=== PATIENT | male | born 1950 | race African-American/Black ===

== ENCOUNTER 2024-09-03 01:36 | Emergency (ER) | payer BC, MEDICARE, OTHER ==
[~2024-09-03] VITALS: Ht 193 cm; Wt 106.0 kg
[~2024-09-03 01:36] MED LIST: [UNRECOGNIZED DRUG - CODE]
[2024-09-03 01:41] VITALS: O2SAT 99
[2024-09-03 02:31] VITALS: BP 122/82; PULSE 90; RESP 16; TEMP 36.6; O2SAT 99
== END 2024-09-03 07:55 | disposition home or self-care (01) ==
LOC: ER 01:53
DX: S81.811A Laceration without foreign body, right lower leg, initial encounter (principal); Z95.2 Presence of prosthetic heart valve; Z79.01 Long term (current) use of anticoagulants; X58.XXXA Exposure to other specified factors, initial encounter; Y93.89 Activity, other specified; Y92.89 Other specified places as the place of occurrence of the external cause; Y99.8 Other external cause status
CPT/HCPCS: 99283; A6449

== ENCOUNTER 2024-09-03 14:38 | Emergency (ER) | payer MEDICARE ==
[~2024-09-03] VITALS: Ht 190.5 cm; Wt 106.0 kg
[2024-09-03 14:43] VITALS: TEMP 36.6; O2SAT 100
[2024-09-03] MEDS: TRANEXAMIC ACID 1,000MG/10ML TP ONE (18:15)
[2024-09-03 20:43] VITALS: BP 142/70; PULSE 81; RESP 19; O2SAT 100
== END 2024-09-03 20:44 | disposition home or self-care (01) ==
LOC: ER 14:51
DX: S81.831D Puncture wound without foreign body, right lower leg, subsequent encounter (principal); R03.0 Elevated blood-pressure reading, without diagnosis of hypertension; Z86.718 Personal history of other venous thrombosis and embolism; Z79.01 Long term (current) use of anticoagulants; Z98.890 Other specified postprocedural states; X58.XXXD Exposure to other specified factors, subsequent encounter
CPT/HCPCS: 99283

== ENCOUNTER 2025-05-26 18:00 | Emergency (ER) | payer SELFPAY ==
[~2025-05-26] VITALS: Ht 185.4 cm; Wt 100.0 kg
[2025-05-26 18:05] VITALS: O2SAT 99
[2025-05-26] MEDS ORDERED: AMOX1TAB16 MT (19:24)
[2025-05-26] MEDS: IBUPROFEN 800MG TABLET PO ONE (19:25)
[2025-05-26 20:03] VITALS: BP 151/92; PULSE 93; RESP 18; TEMP 36.9; O2SAT 100
== END 2025-05-26 20:05 | disposition home or self-care (01) ==
LOC: ER 18:00
DX: S01.01XA Laceration without foreign body of scalp, initial encounter (principal); R51.9 Headache, unspecified; Z98.890 Other specified postprocedural states; W01.0XXA Fall on same level from slipping, tripping and stumbling without subsequent striking against object, initial encounter; Y93.89 Activity, other specified; Y92.89 Other specified places as the place of occurrence of the external cause; Y99.8 Other external cause status
CPT/HCPCS: 70450; 12002; 99284; Z7610 ×2